=== PATIENT | female | born 1995 | race Caucasian/White ===

== ENCOUNTER 2016-11-09 18:21 | Emergency (ER) | payer OTHER ==
[2016-11-09] MEDS ORDERED: OXYCODONE-ACETAMINOPHEN 5-325 MG TABLET PO ONE (19:36)
[2016-11-09] MEDS ORDERED: METOCLOPRAMIDE HCL 10 MG TABLET PO ONE (19:37)
--- NOTE | 2016-11-09 19:40 | ER Document Report ---
ED Medical Screen (RME) - General Chief Complaint: Flank Pain Stated Complaint: FLANK PAIN Time Seen by Provider: 11/09/16 19:26 Notes: This 21-year-old female patient comes emergency room with a four-day history of left flank abdomen pain. She saw her primary care yesterday was diagnosed with urinary tract infection put on antibiotic. She is 8 weeks by history. She is taking vitamins and a medication for nausea. She was seen here just over 1 year ago with bilateral kidney stones and a left ureteral stone with hydronephrosis. I have greeted and performed a rapid initial assessment of this patient. A comprehensive ED assessment and evaluation of the patient, analysis of test results and completion of the medical decision making process will be conducted by additional ED providers. TRAVEL OUTSIDE OF THE [place] IN LAST 30 DAYS: No - Related Data Allergies/Adverse Reactions: Penicillins Allergy (Severe, Verified 11/09/16 18:28) Hives Past Medical History - Social History Chew tobacco use (# tins/day): No Frequency of alcohol use: None Drug Abuse: None Neurological Medical History: Reports: Hx Migraine Renal/ Medical History: Reports: Hx Ovarian Cysts - left. Denies: Hx Peritoneal Dialysis GI Medical History: Reports: Hx Irritable Bowel, Hx Colonoscopy, Hx Endoscopy Musculoskeltal Medical History: Reports Hx Musculoskeletal Trauma - Fractured right wrist Traumatic Medical History: Reports: Hx Fractures - Right wrist Past Surgical History: Reports: Hx Myringotomy, Hx Oral Surgery - Immunizations Hx Diphtheria, Pertussis, Tetanus Vaccination: Yes Physical Exam - Vital signs Vitals: Temp Pulse Resp BP Pulse Ox 98.4 F 90 18 159/94 H 99 11/09/16 18:26 11/09/16 18:26 11/09/16 18:26 11/09/16 18:26 11/09/16 18:26 Course - Vital Signs Vital signs: Temp Pulse Resp BP Pulse Ox 98.4 F 90 18 159/94 H 99 11/09/16 18:26 11/09/16 18:26 11/09/16 18:26 11/09/16 18:26 11/09/16 18:26
[2016-11-09] MEDS ORDERED: MORPHINE SULFATE 10 MG/ML INJ IV PRN (20:06)
[2016-11-09] MEDS ORDERED: NORMAL SALINE 1000 ML 1,000 ML IV ONE (20:06)
--- NOTE | 2016-11-09 20:08 | ER Document Report ---
ED General - General Chief Complaint: Flank Pain Stated Complaint: FLANK PAIN Time Seen by Provider: 11/09/16 19:26 Notes: Patient is a 21-year-old female with a past medical history of nephrolithiasis, at 8 weeks by transvaginal ultrasound with confirmed intrauterine who presents with 3 days of left flank pain radiating into her left lower abdomen. Does describe it as a severe, constant, stabbing pain intermittently worsens. She has been trying Tylenol with minimal improvement of her pain. Nothing worsens her pain. She was seen by her primary care doctor and diagnosed with having a possible urinary tract infection although they did not perform a urinalysis only a urine culture. She was started on nitrofurantoin which she states has not made any difference in her symptoms. She does have a history of kidney stones in the past and states this feels very similar. She has had associated nausea and vomiting. She denies any fever or constitutional symptoms. Denies any vaginal bleeding or discharge. TRAVEL OUTSIDE OF THE [place] IN LAST 30 DAYS: No - Related Data Allergies/Adverse Reactions: Penicillins Allergy (Severe, Verified 11/09/16 18:28) Kenny Past Medical History - General Information source: Patient - Social History Smoking Status: Never Smoker Chew tobacco use (# tins/day): No Frequency of alcohol use: None Drug Abuse: None Lives with: Spouse/Significant other Family History: Arthritis, CAD, CVA, DM, Hyperlipidemia, Hypertension, Malignancy Neurological Medical History: Reports: Hx Migraine Renal/ Medical History: Reports: Hx Ovarian Cysts - left. Denies: Hx Peritoneal Dialysis GI Medical History: Reports: Hx Irritable Bowel, Hx Colonoscopy, Hx Endoscopy Musculoskeltal Medical History: Reports Hx Musculoskeletal Trauma - Fractured right wrist Traumatic Medical History: Reports: Hx Fractures - Right wrist Past Surgical History: Reports: Hx Myringotomy, Hx Oral Surgery - Immunizations Hx Diphtheria, Pertussis, Tetanus Vaccination: Yes Review of Systems - Review of Systems Notes: Constitutional: Negative for fever. HENT: Negative for sore throat. Eyes: Negative for visual changes. Cardiovascular: Negative for chest pain. Respiratory: Negative for shortness of breath. Gastrointestinal: Positive for flank pain and vomiting Genitourinary: Positive for urinary hesitancy and hematuria Musculoskeletal: Negative for back pain. Skin: Negative for rash. Neurological: Negative for headaches, weakness or numbness. 10 point ROS negative except as marked above and in HPI. Physical Exam - Vital signs Vitals: Temp Pulse Resp BP Pulse Ox 98.4 F 90 18 159/94 H 99 11/09/16 18:26 11/09/16 18:26 11/09/16 18:26 11/09/16 18:26 11/09/16 18:26 Interpretation: Hypertensive Notes: PHYSICAL EXAMINATION: GENERAL: Appears uncomfortable but in no acute distress HEAD: Atraumatic, normocephalic. EYES: Pupils equal round and reactive to light, extraocular movements intact, sclera anicteric, conjunctiva are normal. ENT: nares patent, oropharynx clear without exudates. Moderately dry mucous membranes. NECK: Normal range of motion, supple without lymphadenopathy LUNGS: Breath sounds clear to auscultation bilaterally and equal. No wheezes rales or rhonchi. HEART: Regular rate and rhythm without murmurs ABDOMEN: Soft, nontender, normoactive bowel sounds. No guarding, no rebound. No masses appreciated. Left CVA tenderness. Mild hydronephrosis on bedside ultrasound of the left kidney. Right side without any evidence of hydronephrosis EXTREMITIES: Normal range of motion, no pitting or edema. No cyanosis. NEUROLOGICAL: No focal neurological deficits. Moves all extremities spontaneously and on command. PSYCH: Normal mood, normal affect. SKIN: Warm, Dry, normal turgor, no rashes or lesions noted. Course - Re-evaluation Re-evalutation: 11/09/16 20:07 Patient presents with 3 days of left CVA tenderness with associated dysuria and hematuria. Bedside ultrasound shows mild dilation of the left kidney relative to the right. Differential diagnosis includes pyelonephritis versus nephrolithiasis. This is comp gated pictures patient is currently 8 weeks by dates and has had a confirmatory a transvaginal ultrasound confirming an intrauterine . Her vitals are otherwise within normal limits. Will proceed with labs, urinalysis, pain control and reassess 11/09/16 21:32 Patient is having some pain control improvement although states she continues to have significant pain. Urinalysis is consistent with nephrolithiasis without any evidence of an infected stone. CBC does show a leukocytosis which is nonspecific and likely secondary to patient's recurrent vomiting. Basic metabolic panel is pending. I do not see an indication for CT imaging particularly given the patient is . She has a history of an comp gated stones in the past. She does have mild dilation on the left kidney again consistent with a left-sided nephrolithiasis with mild hydronephrosis. Will plan on treatment with tamsulosin, pain control, outpatient RECREATION TEACHER and urology follow-up. At this time will discharge with return precautions and follow-up recommendations. Verbal discharge instructions given a the bedside and opportunity for questions given. Medication warnings reviewed. Patient is in agreement with this plan and has verbalized understanding of return precautions and the need for primary care follow-up in the next 24-72 hours. - Vital Signs Vital signs: Temp Pulse Resp BP Pulse Ox 98.4 F 75 18 145/78 H 99 11/09/16 18:26 11/09/16 22:00 11/09/16 22:00 11/09/16 22:00 11/09/16 22:00 - Laboratory Result Diagrams: 11/09/16 20:35 11/09/16 22:27 Laboratory results interpreted by me: 11/09/16 11/09/16 20:30 20:35 WBC 23.8 H RDW 14.4 H Seg Neuts % (Manual) 85 H Band Neutrophils % 9 H Lymphocytes % (Manual) 4 L Monocytes % (Manual) 1 L Abs Neuts (Manual) 22.4 H Urine Protein 30 H Urine Ketones 80 H Urine Blood MODERATE H Urine Urobilinogen 2.0 H Urine Ascorbic Acid 40 H Discharge - Discharge Clinical Impression: Kidney stone on left side, History of calculus of kidney during Condition: Stable Disposition: HOME, SELF-CARE Additional Instructions: Your symptoms should improve over the course of the next one week. If you continue to have pain for greater than one week or your pain is not controlled with the pain medications that you have been sent home with you need to return to the emergency department. Please also return if you develop fever, persistent vomiting, or any other symptoms that are concerning to you. You can use the oral morphine as prescribed only for pain not controlled by acetaminophen. Be sure to take acetaminophen 1000 mg every 6 hours scheduled regardless of whether or not you are having pain into the past the stone. Your also been sent home with a medication called Flomax to help pass the stone. You 've been given Zofran to assist with nausea. Please followup closely with your primary care provider. Prescriptions: Morphine Sulfate [Morphine Ir 15 mg Tablet] 15 mg PO Q4HP PRN #12 tablet PRN Reason: Tamsulosin HCl [Flomax 0.4 mg Cap.sr] 0.4 mg PO DAILY #7 cap.sr.24h Referrals: CALE CERVANTES MD [Primary Care Provider] - Follow up in 3-5 days REMINGTON CERDA MD [[facility]] - Follow up in 3-5 days
[2016-11-09] MEDS ORDERED: METOCLOPRAMIDE HCL INJ/PF 10 MG/2 ML SDV IV ONE (20:30)
[2016-11-09] MEDS ORDERED: METOCLOPRAMIDE HCL INJ/PF 10 MG/2 ML SDV ONE (20:34)
[2016-11-09 20:57] LABS: HEMATOCRIT 42.8 % (36.0-47.0); HEMOGLOBIN 15.3 g/dL (12.0-15.5); HGB HCT DIFFERENCE 3.1; MEAN CORPUSCULAR HEMOGLOBIN 30.5 pg (27.0-33.4); MEAN CORPUSCULAR HGB CONC 35.9 g/dL (32.0-36.0); MEAN CORPUSCULAR VOLUME 85 fl (80-97); RED BLOOD COUNT 5.03 10^6/uL (3.72-5.28); RED CELL DISTRIBUTION WIDTH 14.4 % (11.5-14.0); WHITE BLOOD COUNT 23.8 10^3/uL (4.0-10.5)
[2016-11-09 21:21] LABS: APPEARANCE,URINE SLIGHTLY-CLOUDY; BILIRUBIN,URINE NEGATIVE (NEGATIVE); CALCIUM OXALATE CRYSTALS,URINE MODERATE /HPF; GLUCOSE, URINE NEGATIVE (NEGATIVE); KETONES,URINE 80 mg/dL (NEGATIVE); LEUKOCYTE ESTERASE,URINE NEGATIVE (NEGATIVE); NITRITE,URINE NEGATIVE (NEGATIVE); PROTEIN,URINE 30 mg/dL (NEGATIVE); URINE SPECIFIC GRAVITY 1.027
[2016-11-09 21:26] LABS: BAND NEUTROPHILS % (MANUAL) 9 % (3-5); BASOPHILS % (MANUAL) 0 % (0-2); EOSINOPHILS % (MANUAL) 0 % (0-6); LYMPHOCYTES % (MANUAL) 4 % (13-45); TOTAL CELLS COUNTED 100
[2016-11-09 21:28] LABS: ANISOCYTOSIS SLIGHT; PLATELET CLUMPS PRESENT; POLYCHROMASIA SLIGHT; TOXIC GRANULATION SLIGHT
[2016-11-09] MEDS ORDERED: HYDROMORPHONE HCL INJ/PF 2 MG/ML AMPULE IV ONE (21:29)
[2016-11-09] MEDS ORDERED: LIDOCAINE 5% (700 MG) TRANSDERMAL ADH..PATCH TP ONE (21:30)
[2016-11-09] MEDS ORDERED: TAMSULOSIN HCL 0.4 MG CAP.SR.24H PO ONE (21:34)
[2016-11-09] MEDS ORDERED: ONDANSETRON ODT 4 MG TAB (6 TAB/DSPK) PO PRN (21:35)
[2016-11-09] MEDS ORDERED: HYDROCODONE/ACETAMINOPHEN 5-325 MG 6 TAB/DSPK PO PRN (21:35)
[2016-11-09] MEDS ORDERED: ACETAMINOPHEN 325 MG TABLET PO ONE (21:43)
[2016-11-09 22:31] VITALS: BP 145/78
[2016-11-09 22:59] LABS: ANION GAP 14 (5-19); BLOOD UREA NITROGEN 11 mg/dL (7-20); CALCIUM 9.8 mg/dL (8.4-10.2); CARBON DIOXIDE 22 mmol/L (22-30); CHLORIDE 103 mmol/L (98-107); CREATININE RESULT 0.65 mg/dL (0.52-1.25); GLUCOSE 97 mg/dL (75-110); POTASSIUM 4.2 mmol/L (3.6-5.0); SODIUM 138.8 mmol/L (137-145)
== END 2016-11-09 23:33 | disposition home or self-care (01) ==
LOC: ER 18:21
DX: O26.891 Other specified pregnancy related conditions, first trimester (principal); N20.0 Calculus of kidney; R10.9 Unspecified abdominal pain; R39.11 Hesitancy of micturition; R31.9 Hematuria, unspecified; R30.0 Dysuria; O21.9 Vomiting of pregnancy, unspecified; O99.111 Other diseases of the blood and blood-forming organs and certain disorders involving the immune mechanism complicating pregnancy, first trimester; D72.829 Elevated white blood cell count, unspecified; Z3A.08 8 weeks gestation of pregnancy; Z88.0 Allergy status to penicillin; Z87.42 Personal history of other diseases of the female genital tract; Z87.19 Personal history of other diseases of the digestive system
CPT/HCPCS: 99284; 96361; 96374; 96375; 36415; 85025; 80048; 81001; J2765; J2270; J1170; J7030

== ENCOUNTER 2017-05-16 09:38 | Outpatient (CLI) | payer OTHER ==
[2017-05-16 10:26] LABS: RBCS (WET MOUNT) NO RBCS SEEN; T.VAGINALIS (WET MOUNT) NO TRICHOMONAS SEEN; WBCS (WET MOUNT) FEW WBCS SEEN; YEAST (WET MOUNT) NO YEAST SEEN
[2017-05-16 10:39] LABS: APPEARANCE,URINE SLIGHTLY-CLOUDY; COLOR,URINE YELLOW; GLUCOSE, URINE NEGATIVE (NEGATIVE)
[2017-05-16 10:40] LABS: BILIRUBIN,URINE NEGATIVE (NEGATIVE); KETONES,URINE NEGATIVE (NEGATIVE); LEUKOCYTE ESTERASE,URINE NEGATIVE (NEGATIVE); NITRITE,URINE NEGATIVE (NEGATIVE); PROTEIN,URINE NEGATIVE (NEGATIVE); URINE SPECIFIC GRAVITY 1.016
[2017-05-16 10:51] LABS: URINE AMPHETAMINES SCREEN NEGATIVE; URINE BARBITURATES SCREEN NEGATIVE; URINE BENZODIAZEPINES SCREEN NEGATIVE; URINE COCAINE SCREEN NEGATIVE; URINE MARIJUANA (THC) SCREEN NEGATIVE; URINE METHADONE SCREEN NEGATIVE; URINE PHENCYCLIDINE SCREEN NEGATIVE
--- NOTE | 2017-05-16 11:16 | Non Stress Test Report ---
Non Stress Test Datetime Report Generated by CPN: 05/16/2017 11:15 DEMOGRAPHIC EGA NST: 33.5 INDICATION Indication for Study: Ordered by Provider MONITORING Monitor Explained: Monitor Explained; Test Explained; Patient Verbalized Understanding Time on Monitor: 05/16/2017 10:07 Time off Monitor: 05/16/2017 11:00 NST Duration: 53 NST INTERVENTIONS NST Interventions: PO Hydration; Reposition Patient Physician Notified NST: H Yossi CNM BABY A: [id number] BABY A Movement : Present Contraction Frequency : 0 FHR Baseline : 150 Accelerations : 15X15 Decelerations : None Variability : Moderate 6-25bpm NST Review: Meets Criteria for Reactive NST NST Review and Verified By : Uriel Mcgarryavagustavo RNC NST Results: Reactive NST REPORT Report Trigger: Send Report
== END 2017-05-16 11:20 | disposition home or self-care (01) ==
LOC: LC 09:38
PROVIDERS: ATTEND Student in an Organized Health Care Education/Training Program
PROC: 4A1HXCZ Monitoring of Products of Conception, Cardiac Rate, External Approach (ICD-10-PCS; principal; 2017-05-16)
DX: O36.8130 Decreased fetal movements, third trimester, not applicable or unspecified (principal); Z3A.33 33 weeks gestation of pregnancy
CPT/HCPCS: 80307; 81001; 87086; 87088; 87186; 87210

== ENCOUNTER 2017-06-13 11:29 | Inpatient (IN) | payer BC, OTHER ==
[2017-06-13 11:53] LABS: APPEARANCE,URINE SLIGHTLY-CLOUDY; BILIRUBIN,URINE NEGATIVE (NEGATIVE); COLOR,URINE YELLOW; GLUCOSE, URINE NEGATIVE (NEGATIVE); KETONES,URINE NEGATIVE (NEGATIVE); LEUKOCYTE ESTERASE,URINE NEGATIVE (NEGATIVE); NITRITE,URINE NEGATIVE (NEGATIVE); PROTEIN,URINE NEGATIVE (NEGATIVE); URINE SPECIFIC GRAVITY 1.016; UROBILINOGEN,URINE NEGATIVE mg/dL (<2.0)
[2017-06-13 12:01] LABS: ABSOLUTE BASOPHILS # (AUTO) 0.1 10^3/uL (0.0-0.2); ABSOLUTE EOSINOPHILS # (AUTO) 0.2 10^3/uL (0.0-0.6); ABSOLUTE LYMPHOCYTES (AUTO) 2.2 10^3/uL (0.5-4.7); ABSOLUTE MONOCYTES (AUTO) 0.7 10^3/uL (0.1-1.4); ABSOLUTE NEUT (AUTO) 8.7 10^3/uL (1.7-8.2); BASOPHILS % (AUTO) 0.6 % (0-2); EOSINOPHILS % (AUTO) 1.3 % (0-6); HEMATOCRIT 36.9 % (36.0-47.0); HEMOGLOBIN 13.4 g/dL (12.0-15.5); LYMPHOCYTES % (AUTO) 18.8 % (13-45); MEAN CORPUSCULAR HEMOGLOBIN 29.6 pg (27.0-33.4); MEAN CORPUSCULAR HGB CONC 36.3 g/dL (32.0-36.0); MEAN CORPUSCULAR VOLUME 82 fl (80-97); MONOCYTES % (AUTO) 6.1 % (3-13); PLATELET COUNT 234 10^3/uL (150-450); RED BLOOD COUNT 4.53 10^6/uL (3.72-5.28); SEGMENTED NEUTROPHILS % (AUTO) 73.2 % (42-78); TOTAL CELLS COUNTED % (AUTO) 100 %; WHITE BLOOD COUNT 11.9 10^3/uL (4.0-10.5)
[2017-06-13 12:01] LABS: AMNISURE (ROM) POSITIVE (NEGATIVE)
[2017-06-13 12:27] LABS: ALANINE AMINOTRANSFERASE 25 U/L (9-52); ALBUMIN 3.8 g/dL (3.5-5.0); ALKALINE PHOSPHATASE 70 U/L (38-126); ANION GAP 12 (5-19); ASPARTATE AMINO TRANSFERASE 18 U/L (14-36); BILIRUBIN,DIRECT 0.2 mg/dL (0.0-0.4); BILIRUBIN,TOTAL 0.6 mg/dL (0.2-1.3); BLOOD UREA NITROGEN 9 mg/dL (7-20); CALCIUM 10.3 mg/dL (8.4-10.2); CARBON DIOXIDE 21 mmol/L (22-30); CHLORIDE 106 mmol/L (98-107); GLUCOSE 75 mg/dL (75-110); LDH 319 U/L (313-618); POTASSIUM 4.2 mmol/L (3.6-5.0); SODIUM 138.9 mmol/L (137-145); TOTAL PROTEIN 6.6 g/dL (6.3-8.2)
[2017-06-13 12:31] LABS: URINE AMPHETAMINES SCREEN NEGATIVE; URINE BARBITURATES SCREEN NEGATIVE; URINE BENZODIAZEPINES SCREEN NEGATIVE; URINE COCAINE SCREEN NEGATIVE; URINE MARIJUANA (THC) SCREEN NEGATIVE; URINE METHADONE SCREEN NEGATIVE; URINE PHENCYCLIDINE SCREEN NEGATIVE
[2017-06-13] MEDS ORDERED: OXYTOCIN/NORMAL SALINE 20 UNIT/1,000 ML RTUINJ IV PRN (14:03)
[2017-06-13] MEDS ORDERED: RINGERS SOLUTION,LACTATED 300 ML IV ONE (14:03)
[2017-06-13] MEDS ORDERED: RINGERS SOLUTION,LACTATED 1,000 ML IV PRN (14:03)
--- NOTE | 2017-06-13 14:37 | Admission Physical ---
Datetime Report Generated by CPN: 06/13/2017 14:37 CURRENT ADMISSION Chief Complaint: Uterine Contractions; Suspected Ruptured Membranes Indication for Induction: PROM Admit Impression : Term, Intrauterine ; No Active Labor; Ruptured Membranes; Induction of Labor Admit Plan: Admit to Unit; Initiate Labor Induction Protocol ALLERGIES Medication Allergies: Yes Medication Allergies: Penicillins/SV/Hives (06/13/2017) Latex: No Latex Allergies Food Allergies: na Environmental Allergies: na OBSTETRICAL HISTORY EDC: 06/29/2017 00:00 : 1 Para: 0 Term: 0 : 0 SAB: 0 IAB: 0 Ectopic: 0 Livin Cesareans: 0 VBACs: 0 Multiple Births: 0 Gestational Diabetes: Yes Rh Sensitization: No Incompetent Cervix: No NANCY: No Infertility: No ART Treatment: No Uterine Anomaly: No IUGR: No Hx Previous C/S: No Macrosomia: No Hx Loss/Stillborn: No PIH: Yes Hx : No Placenta Previa/Abruption: No Depression/PP Depression: No PTL/PROM: No Post Hemorrhage: No Current Procedures: Ultrasound; NST Obstetrical History Comments: G1: current GDM SEE RECORDS Alcohol: No Marijuana : No Cocaine: No Other Illicit Drugs: No Cigarettes: Never Smoker. [id number] MEDICAL HISTORY Diabetes: Yes Diabetes Type: Gestational Diabetes Blood Transfusion: No Pulmonary Disease (Asthma, TB): No Breast Disease: No Hypertension: Yes Impregnator And Drier Surgery: No Heart Disease: No Hosp/Surgery: No Autoimmune Disorder: No Anesthetic Complications: No Kidney Disease: Yes Abnormal Pap Smear: No Neuro/Epilepsy: No Psychiatric Disorders: No Other Medical Diseases: No Hepatitis/Liver Disease: No Significant Family History: No Varicosities/Phlebitis: No Trauma/Violence : No Thyroid Dysfunction: No Medical History Comments: Chronic uti's kidney stones "depression runs in family" INFECTIOUS HISTORY Gonorrhea: No Genital Herpes: No Chlamydia: No Tuberculosis: No Syphilis: No Hepatitis: No HIV/AIDS Exposure: No Rash or Viral Illness: No HPV: No PHYSICAL EXAM General: Normal HEENT: Normal Neurologic: Normal Thyroid: Deferred Heart: Normal Lungs: Normal Breast: Deferred Back: Normal Abdomen: Normal Genitourinary Exam: Normal Extremities: Normal DTRs: Normal Pelvic Type: Adequate Vital Signs: Reviewed VAGINAL EXAM Dilatation: 1 Effacement: 50 Station: -3 Contraction Comments: rare MEMBRANES Membranes: Intact FETUS A EGA: 37.5 Monitoring: External US FHR- Baseline: 145 Variability: Moderate 6-25bpm Accelerations: 15X15 Decelerations: None FHR Category: Category I Presentation: Vertex Admit Comment: 21yo at 37.5ega presents for evaluation for leakage of fluid and elevated BPs. + ROM on amnisure. PIH w/u labs ordered. GHTN vs PreE. c/b A2GDM, Obesity. Currently on Metformin 500mg po BID. GBS pos (clinda resistant) - Will begin Vancomycin 1gram q 12 hours. Anticipate . Begin IOL with Cooks catheter and pitocin. PLANS FOR LABOR AND DELIVERY Labor and Delivery: None Pain Management: Epidural Feeding Preference: Breast Benefit of Breast Feed Discussed: Yes Circumcision: Yes INFORMED CONSENT Informed Consent Obtained: Vaginal Delivery; Induction of Labor; Risks, Benefits and Alternatives Discussed Signature: with User ID: [email or web address]
[2017-06-13] MEDS ORDERED: VANCOMYCIN HCL INJ 1000 MG VIAL ONE ×2 (14:49→16:00)
[2017-06-13] MEDS ORDERED: OXYTOCIN/NORMAL SALINE 0 UNIT/0 ML RTUINJ ONE (16:00)
--- NOTE | 2017-06-13 16:31 | L&D Progress Notes ---
PROGRESS NOTES Datetime Report Generated by CPN: 06/13/2017 16:31 PROGRESS NOTE Impression: Reassuring Heart Rate Procedures: Scalp Electrode Procedures- Other: cooks placed Plan: Induction Informed Consent Obtained: Vaginal Delivery; Induction of Labor; Risks, Benefits and Alternatives Discussed Vital Signs : Reviewed Comment: ? rom time pt wonders if it was long Cooks cath placed Will start pitocin VAGINAL EXAM Dilatation: 1 Effacement: 50 Station: -3 Contractions: rare MEMBRANES Membranes: Ruptured Membranes: Intact FETUS A FHR - Baseline: 145 Monitoring: External US Variability: Moderate 6-25bpm Accelerations: 15X15 Decelerations: None FHR Category: Category I Presentation: Vertex SIGNATURE SIGNATURE: ,[id number] SIGNATURE: ,[id number];[id number] SIGNATURE: ,[id number] Assignment: Jennifer Valdes MD Signature: with User ID: [email or web address] : with User ID: Taylor
[2017-06-13] MEDS ORDERED: NALBUPHINE HCL INJ 10 MG/1 ML AMPULE INJ ONE (18:21)
[2017-06-13] MEDS ORDERED: NALBUPHINE HCL INJ 10 MG/1 ML AMPULE ONE (18:28)
--- NOTE | 2017-06-13 18:29 | L&D Progress Notes ---
PROGRESS NOTES Datetime Report Generated by CPN: 06/13/2017 18:28 PROGRESS NOTE Impression: Normal Progression of Labor Procedures: Sterile Vag Exam Plan: Continue Present Management; Induction; Cervical Ripening Informed Consent Obtained: Vaginal Delivery; Induction of Labor; Risks, Benefits and Alternatives Discussed Vital Signs : Reviewed Comment: Pt here for IOL due to PROM. cvx 1/50/-3. Cooks catheter still in place. Will give nubain. reeval in 2-3 hours for possible removal of cooks. anticipate . Doing well. desires epidural at some point but wants IV meds for now. VAGINAL EXAM Dilatation: 1 Effacement: 50 Station: -3 Contractions: q 2-3 FETUS A FHR - Baseline: 145 Monitoring: External US Variability: Moderate 6-25bpm Accelerations: 15X15 Decelerations: None FHR Category: Category I FETUS C SIGNATURE: [id number];[id number];10,[id number] Signature: with User ID: [email or web address]
[2017-06-13] MEDS ORDERED: OXYTOCIN/NORMAL SALINE 20 UNIT/1,000 ML RTUINJ ONE (19:31)
[2017-06-13] MEDS ORDERED: LIDOCAINE 1% INJ-PF (10 MG/ML) 30 ML SDV ONE (19:31)
[2017-06-13] MEDS ORDERED: MISOPROSTOL 0.2 MG TABLET ONE (19:31)
[2017-06-13] MEDS ORDERED: FENTANYL CITRATE INJ/PF 100 MCG/2 ML AMPUL ONE (19:48)
[2017-06-13] MEDS ORDERED: FENTANYL/BUPIVACAINE/NS/PF 300 MCG/150 ML RTUINJ EPI ONE (19:49)
[2017-06-13] MEDS ORDERED: EPHEDRINE SULFATE INJ 50 MG/1 ML AMPULE ONE (19:49)
[2017-06-13] MEDS ORDERED: BUPIVACAINE HCL 0.25 % INJ/PF (2.5 MG/1 ML) 30 ML VIAL ONE (19:49)
--- NOTE | 2017-06-13 20:00 | L&D Progress Notes ---
PROGRESS NOTES Datetime Report Generated by CPN: 06/13/2017 20:00 PROGRESS NOTE Impression: Normal Progression of Labor Procedures: Sterile Vag Exam Plan: Induction; Cervical Ripening; Anesthesia Consult Informed Consent Obtained: Vaginal Delivery; Induction of Labor; Risks, Benefits and Alternatives Discussed Vital Signs : Reviewed Comment: Pt asking for pain medication. Cvx with cooks in place is 3-4cm. Cooks remains in place. Will get epidural. MEMBRANES Membranes: Ruptured FETUS A Monitoring: External US Decelerations: None FHR Category: Category I FETUS C SIGNATURE: [id number];[id number];[id number] Signature: with User ID: [email or web address]
[2017-06-14] MEDS ORDERED: BUPIVACAINE HCL 0.5 % INJ/PF 30 ML SDV ONE (00:06)
[2017-06-14] MEDS ORDERED: BUPIVACAINE HCL 0.25 % INJ/PF (2.5 MG/1 ML) 30 ML VIAL ONE (00:24)
[2017-06-14] MEDS ORDERED: FENTANYL CITRATE INJ/PF 100 MCG/2 ML AMPUL ONE (00:24)
[2017-06-14] MEDS ORDERED: ACETAMINOPHEN 325 MG TABLET PO ONE (01:24)
[2017-06-14] MEDS ORDERED: ACETAMINOPHEN 325 MG TABLET ONE (01:28)
[2017-06-14] MEDS ORDERED: VANCOMYCIN HCL INJ 1000 MG VIAL IV SCH (02:00)
[2017-06-14] MEDS ORDERED: VANCOMYCIN HCL INJ 1000 MG VIAL ONE (04:25)
[2017-06-14] MEDS ORDERED: NALBUPHINE HCL INJ 10 MG/1 ML AMPULE ONE (04:58)
[2017-06-14] MEDS ORDERED: NALBUPHINE HCL INJ 10 MG/1 ML AMPULE INJ ONE (05:00)
[2017-06-14] MEDS ORDERED: ACETAMINOPHEN 325 MG TABLET PO PRN (06:13)
[2017-06-14] MEDS ORDERED: BENZOCAINE/MENTHOL AEROSOL SPRAY 56 ML TOP PRN (06:13)
[2017-06-14] MEDS ORDERED: PROMETHAZINE HCL 25 MG TABLET PO PRN (06:13)
[2017-06-14] MEDS ORDERED: ZOLPIDEM TARTRATE 5 MG TABLET PO PRN (06:13)
[2017-06-14] MEDS ORDERED: DIBUCAINE 1% OINTMENT 28 GM TP PRN (06:13)
[2017-06-14] MEDS ORDERED: PROMETHAZINE HCL 25 MG SUPP.RECT PR PRN (06:13)
[2017-06-14] MEDS ORDERED: MISOPROSTOL 0.2 MG TABLET PR PRN (06:13)
[2017-06-14] MEDS ORDERED: GLYCERIN/WITCH HAZEL LEAF 1 EACH MED..PAD TP PRN (06:13)
[2017-06-14] MEDS ORDERED: ACETAMINOPHEN WITH CODEINE #3 TABLET PO PRN (06:13)
[2017-06-14] MEDS ORDERED: PSEUDOEPHEDRINE HCL 30 MG TABLET PO PRN (06:13)
[2017-06-14] MEDS ORDERED: PROMETHAZINE HCL INJ 25 MG/1 ML VIAL IV PRN (06:13)
[2017-06-14] MEDS ORDERED: DIPH/PERTUSS(ACELL)/TETANUS VAC/PF 0.5 ML SYR (>=10YO) IM PRN (06:13)
[2017-06-14] MEDS ORDERED: MEASLES,MUMPS&RUBELLA VACC/PF 0.5 ML VIAL SUBCUT PRN (06:13)
[2017-06-14] MEDS ORDERED: DIPHENHYDRAMINE HCL 25 MG CAPSULE PO PRN (06:13)
[2017-06-14] MEDS ORDERED: MAGNESIUM HYDROXIDE SUSP 30 ML UDCUP PO PRN (06:13)
[2017-06-14] MEDS ORDERED: NA PHOS,M-B/NA PHOS,DI-BA (ADULT) 133 ML ENEMA PR PRN (06:13)
[2017-06-14] MEDS ORDERED: OXYTOCIN/NORMAL SALINE 20 UNIT/1,000 ML RTUINJ IV PRN (06:13)
[2017-06-14] MEDS ORDERED: OXYTOCIN/NORMAL SALINE 20 UNIT/1,000 ML RTUINJ ONE (06:25)
--- NOTE | 2017-06-14 06:55 | Delivery Summary ---
Del Sum A-C Datetime Report Generated by CPN: 06/14/2017 06:55 DELIVERY PERSONNEL DELIVERY PERSONNEL: [id number] Delivery Doctor:: Jennifer Valdes MD Anesthesiologist:: Suly Mcgraw MD Labor and Delivery Nurse:: Paty Torres RNbeef cattle specialist Nurse:: Ynes Carbajal RN Public Relations Supervisor/SALVAGE GRINDER: Jackelyn Kennedy ST MATERNAL INFORMATION Delivery Anesthesia: Epidural Medications After Delivery: Pitocin Drip 20 Units/1000ml NSS Meds After Delivery Comment: Cytotec 1000 mcg Maternal Complications: Maternal Fever Provider Comments: VMI delivered in GIA presentation. Loose nuchal cord. Shoulders and body delivered without difficulty. cord doubly clamped and cut and to maternal abdomen. Placenta delivered intact spontaneously. FF at U. right labial laceration repaired for hemostasis. Cytotec 1000mcg GA placed for uterine tone. Mother and baby stable upon provider leaving the room. LABOR SUMMARY EDC: 06/29/2017 00:00 No. Babies in Womb: 1 Attempted: No Labor Anesthesia: Epidural LABOR INFORMATION Reason for Induction: Gestational Hypertension; Maternal Diabetes Onset of Labor: 06/13/2017 21:48 Complete Dilatation: 06/14/2017 05:08 Cervical Ripening Agents: Moran Balloon Oxytocin: Induction Group B Beta Strep: Positive Antibiotics # of Doses: 2 Antibiotics Time of Last Dose: 0443 Name of Antibiotic Given: Vancomycin Steroids Given: None Reason Steroids Not Administered: Not Applicable MEMBRANES Membranes Rupture Method: Spontaneous Rupture of Membranes: 06/11/2017 19:30 Length of Rupture (hr): 58.02 Amniotic Fluid Color: Clear Amniotic Fluid Amount: Small STAGES OF LABOR Stage 1 hr: 7 Stage 1 min: 20 Stage 2 hr: 0 Stage 2 min: 23 Stage 3 hr: 0 Stage 3 min: 3 Total Time in Labor hr: 7 Total Time in Labor min: 46 VAGINAL DELIVERY Episiotomy: None Laceration #1: Vaginal Laceration Extension #1: N/A Other Laceration: Right Labial Laceration Repair: Yes Laceration Repair Note: Right labial laceration Sponge Count Correct: Yes Sharps Count Correct: Yes CSECTION DELIVERY Primary Indication: N/A Secondary Indication: N/A CSection Incidence: N/A Labor: N/A Elective: N/A CSection Incision: N/A BABY A INFORMATION Delivery Date/Time: 06/14/2017 05:31 Method of Delivery: Vaginal Born in Route : No : N/A Forceps: N/A Vacuum Extraction: N/A Shoulder Dystocia : No PRESENTATION/POSITION BABY A Presentation: Cephalic Cephalic Presentation: Vertex Vertex Position: Right Occipital Anterior Breech Presentation: N/A PLACENTA INFORMATION BABY A Placenta Delivery Time : 06/14/2017 05:34 Placenta Method of Delivery: Spontaneous Placenta Status: Delivered SCORES BABY A Heart Rate 1 min: >100 bpm Resp Effort 1 min: Good Cry Reflex Irritability 1 min: Cough or Sneeze or Pulls Away Muscle Tone 1 min: Some Flexion of Extremities Color 1 min: Completely [place] Resuscitation Effort 1 min: N/A SCORE 1 MIN: 9 Heart Rate 5 min: >100 bpm Resp Effort 5 min: Good Cry Reflex Irritability 5 min: Cough or Sneeze or Pulls Away Muscle Tone 5 min: Some Flexion of Extremities Color 5 min: Completely [place] Resuscitation Effort 5 min: N/A SCORE 5 MIN: 9 INFORMATION BABY A Gestational Age at Delivery: 37.6 Gestational Status: Early Term- 37- 38.6 Weeks Infant Outcome : Liveborn Condition : Stable Sex: Male IDENTIFICATION BABY A Infant Verification Date/Time: 06/14/2017 05:38 ID Band Number: [id number] Mother's Name Verified: Yes Infant RN Verifying Infant: K Marily RN B Carbajal RN WEIGHT/LENGTH BABY A Birthweight (gm): 2780 Weight (lb): 6 Weight (oz): 2 Infant Length (in): 19.00 Length (cm): 48.26 CORD INFORMATION BABY A No. Cord Vessels: 3 Nuchal Cord : Around Neck x1, Loose Cord Blood Taken: Yes-For Storage (Mom's Blood type +) Suction: Mouth; Nose ASSESSMENT BABY A Infant Complications: Multiple Variable Decels Physical Findings at Delivery: Molding of the Head Respirations: Appears Normal Skin to Skin: Yes Icer Machine/ALS Called : No Care By: B. Carbajal RN Transferred To: Remains with Mother BABY B INFORMATION : N/A SIGNATURES Signature: with User ID: [email or web address]
[2017-06-14] MEDS: PRENATAL VITAMIN W DHA CAPSULE PO SCH (09:18)
[2017-06-14] MEDS: SENNOSIDES/DOCUSATE 8.6-50 MG 1 EACH TABLET PO SCH (09:18)
[2017-06-14] MEDS: DOCUSATE SODIUM 100 MG CAPSULE PO SCH ×2 (09:19→17:33)
[2017-06-14] MEDS: FERROUS SULFATE 325 MG TABLET PO SCH ×2 (09:19→17:33)
[2017-06-14] MEDS: FAMOTIDINE 20 MG TABLET PO SCH ×2 (09:19→21:23)
[2017-06-14] MEDS: IBUPROFEN 800 MG TABLET PO SCH ×2 (13:32→21:22)
[2017-06-14] MEDS: ACETAMINOPHEN WITH CODEINE #3 TABLET PO PRN ×2 (15:49→21:24)
[2017-06-15] MEDS: IBUPROFEN 800 MG TABLET PO SCH ×3 (06:10→22:47)
[2017-06-15 06:53] LABS: HEMATOCRIT 29.3 % (36.0-47.0); MEAN CORPUSCULAR HEMOGLOBIN 29.9 pg (27.0-33.4); MEAN CORPUSCULAR HGB CONC 36.3 g/dL (32.0-36.0); MEAN CORPUSCULAR VOLUME 83 fl (80-97); PLATELET COUNT 190 10^3/uL (150-450); RED BLOOD COUNT 3.55 10^6/uL (3.72-5.28); RED CELL DISTRIBUTION WIDTH 15.3 % (11.5-14.0); WHITE BLOOD COUNT 12.6 10^3/uL (4.0-10.5)
[2017-06-15 06:56] LABS: HEMOGLOBIN 10.6 g/dL (12.0-15.5)
[2017-06-15] MEDS: SENNOSIDES/DOCUSATE 8.6-50 MG 1 EACH TABLET PO SCH (10:21)
[2017-06-15] MEDS: PRENATAL VITAMIN W DHA CAPSULE PO SCH (10:21)
[2017-06-15] MEDS: DOCUSATE SODIUM 100 MG CAPSULE PO SCH ×2 (10:22→18:11)
[2017-06-15] MEDS: FAMOTIDINE 20 MG TABLET PO SCH ×2 (10:23→22:46)
[2017-06-15] MEDS: FERROUS SULFATE 325 MG TABLET PO SCH ×2 (10:23→18:11)
--- NOTE | 2017-06-15 10:50 | PDOC PROGRESS REPORT ---
Subjective-OB Progress Note for:: 06/15/17 Physical Exam (OB) Vital Signs: Temp Pulse Resp BP Pulse Ox 98.2 F 73 18 124/64 99 06/15/17 07:54 06/15/17 07:54 06/15/17 07:54 06/15/17 07:54 06/15/17 07:54 Intake & Output 06/14/17 06/15/17 06/16/17 06:59 06:59 06:59 Weight 99.3 kg - PIH/Pre-Eclampsia DTR's: 2 + Clonus: Negative Headache: Absent Epigastric Pain: No Visual Changes: No - Lochia Lochia Amount: Small 10-25 ml Lochia Color: Rubra/Red - Abdomen Description: Soft, Round Hernia Present: No Bowel Sounds: Normoactive Flatus Presence: Present Stool: Yes Fundal Description: Firm, Midline Fundal Height: u/u - u/2 Objective-Diagnostic Laboratory: 06/15/17 06:18 06/13/17 11:46 06/15/17 06:18 WBC 12.6 H RBC 3.55 L Hgb 10.6 L D Hct 29.3 L MCV 83 MCH 29.9 MCHC 36.3 H RDW 15.3 H Plt Count 190
[2017-06-15] MEDS: ACETAMINOPHEN WITH CODEINE #3 TABLET PO PRN (15:28)
[2017-06-16] MEDS: IBUPROFEN 800 MG TABLET PO SCH (06:40)
[2017-06-16 08:20] VITALS: BP 115/59
--- NOTE | 2017-06-16 09:05 | PDOC PROGRESS REPORT ---
Subjective-OB Progress Note for:: 06/16/17 Subjective: Ready to go home. Physical Exam (OB) Vital Signs: Temp Pulse Resp BP Pulse Ox 98.6 F 81 16 115/59 L 100 06/16/17 07:19 06/16/17 07:19 06/16/17 07:19 06/16/17 07:19 06/16/17 07:19 - PIH/Pre-Eclampsia DTR's: 2 + Clonus: Negative Headache: Absent Epigastric Pain: No Visual Changes: No - Lochia Lochia Amount: Scant < 10 ml Lochia Color: Serosa/Brown - Abdomen Description: Firm, Soft, Round Hernia Present: No Bowel Sounds: Normoactive Flatus Presence: Present Stool: No Fundal Description: Firm, Midline Fundal Height: u/u - u/2 Objective-Diagnostic Laboratory: 06/15/17 06:18 06/13/17 11:46
--- NOTE | 2017-06-16 09:10 | PDOC DISCHARGE SUMMARY ---
Final Diagnosis Discharge Date: 06/16/17 - Final Diagnosis (1) GDM (gestational diabetes mellitus) Is this a current diagnosis for this admission?: Yes (2) Group B streptococcal carriage complicating Is this a current diagnosis for this admission?: Yes (3) Obesity Is this a current diagnosis for this admission?: Yes (4) Obstetric labial laceration, delivered, current hospitalization Is this a current diagnosis for this admission?: Yes (5) Spontaneous rupture of amniotic membranes Is this a current diagnosis for this admission?: Yes (6) Vaginal delivery Is this a current diagnosis for this admission?: Yes Discharge Data - Discharge Medication Home Medications: Vit,Calc76/Iron/Folic [Prenatabs Rx Tablet] 1 tab PO DAILY 05/16/17 Gestational Age: 37.6 wks Reason(s) for Admission: Induction of Labor, Gestional Diabetes Procedures: Ultrasound Intrapartum Procedure(s): Spontaneous Vaginal Delivery Complication(s): Laceration-Labial - [place] Data Baby 1 Male at 1 minute: 9 at 5 minutes: 9 Weight: 2.778 kg Home with Mother: Yes Complications: No - Diagnosis Test Laboratory: Temp Pulse Resp BP Pulse Ox 98.6 F 81 16 115/59 L 100 06/16/17 07:19 06/16/17 07:19 06/16/17 07:19 06/16/17 07:19 06/16/17 07:19 06/13/17 06/13/17 06/15/17 11:35 11:46 06:18 RBC 4.53 3.55 L Hgb 13.4 10.6 L D Hct 36.9 29.3 L Urine Opiates Screen NEGATIVE - Discharge information/Instructions Discharge Activity: Activity As Tolerated, Balance Activity w/Rest, Pelvic Rest , Slowly Increase Activity, No tub bath Discharge Diet: Regular Disposition: HOME, SELF-CARE Follow up with: [facility] in: 4, Weeks
[2017-06-16] MEDS: PRENATAL VITAMIN W DHA CAPSULE PO SCH (09:23)
[2017-06-16] MEDS: DOCUSATE SODIUM 100 MG CAPSULE PO SCH (09:23)
[2017-06-16] MEDS: FAMOTIDINE 20 MG TABLET PO SCH (09:24)
[2017-06-16] MEDS: SENNOSIDES/DOCUSATE 8.6-50 MG 1 EACH TABLET PO SCH (09:24)
[2017-06-16] MEDS: FERROUS SULFATE 325 MG TABLET PO SCH (09:24)
[2017-06-16] MEDS: ACETAMINOPHEN WITH CODEINE #3 TABLET PO PRN (09:25)
== END 2017-06-16 12:19 | disposition home or self-care (01) | DRG 774 ==
LOC: LC 11:29 → LR 12:54 → 2S 06-14 08:09
PROVIDERS: ADMIT Student in an Organized Health Care Education/Training Program; ATTEND Student in an Organized Health Care Education/Training Program
PROC: 10E0XZZ Delivery of Products of Conception, External Approach (ICD-10-PCS; principal; 2017-06-13)
PROC: 0UQMXZZ Repair Vulva, External Approach (ICD-10-PCS; 2017-06-13)
PROC: 10H073Z Insertion of Monitoring Electrode into Products of Conception, Via Natural or Artificial Opening (ICD-10-PCS; 2017-06-13)
PROC: 3E033VJ Introduction of Other Hormone into Peripheral Vein, Percutaneous Approach (ICD-10-PCS; 2017-06-13)
PROC: 4A1H7CZ Monitoring of Products of Conception, Cardiac Rate, Via Natural or Artificial Opening (ICD-10-PCS; 2017-06-13)
DX: O24.420 Gestational diabetes mellitus in childbirth, diet controlled (principal); O75.2 Pyrexia during labor, not elsewhere classified; Z68.41 Body mass index [BMI] 40.0-44.9, adult; O99.824 Streptococcus B carrier state complicating childbirth; O99.214 Obesity complicating childbirth; E66.9 Obesity, unspecified; O70.0 First degree perineal laceration during delivery; O69.81X0 Labor and delivery complicated by cord around neck, without compression, not applicable or unspecified; O13.4 Gestational [pregnancy-induced] hypertension without significant proteinuria, complicating childbirth; Z88.0 Allergy status to penicillin; Z3A.37 37 weeks gestation of pregnancy; Z37.0 Single live birth
CPT/HCPCS: 36415; 80053; 80307; 81001; 83615; 84112; 84550; 85025; 85027; 86592; 86850; 86900; 86901; 94760; C1726; J2300; J2590; J3010; J3370; J3490

== ENCOUNTER → 2019-02-12 | Outpatient (CLI) | payer OTHER ==
--- NOTE | 2019-02-12 12:40 | RADIOLOGY REPORT (SQ) ---
EXAM DESCRIPTION: U/S OB LIMITED COMPLETED DATE/TIME: 02/12/2019 12:25 pm REASON FOR STUDY: DEMISE COLUMBA COMPARISON: None. TECHNIQUE: Limited transabdominal grayscale ultrasound for evaluation of specific requested obstetri mine parameters. LIMITATIONS: None. FINDINGS: CLINICAL INFORMATION: COLUMBA: 07/27/2020 Gestational age: 16 weeks 6 days CERVICAL LENGTH: 3.1 cm Closed. LVP: 2.8 cm. FHR: heart tones not identified. ESTIMATED GESTATIONAL AGE: 15 weeks 2 days PLACENTA: Not assessed ANATOMY: Not assessed OTHER: No other significant findings. IMPRESSION: No heart tones identified compatible with given history of demise. Estimate d gestational age of 15 weeks 2 days. TECHNICAL DOCUMENTATION: JOB ID: [id number] [employer]- All Rights Reserved Reading location - IP/workstation name: [email or web address]
== END ==
LOC: RAD 12:02
PROVIDERS: ATTEND Obstetrics & Gynecology Gynecology
DX: O02.1 Missed abortion (principal)
CPT/HCPCS: 76815

== ENCOUNTER 2019-02-13 06:28 | Observation (INO) | payer OTHER ==
[2019-02-13] MEDS ORDERED: DEXTROSE 50%-WATER 25 GM/50 ML DISP.SYRIN IV PRN ×2 (06:31)
[2019-02-13] MEDS ORDERED: GLUCAGON,HUMAN RECOMB 1 MG INJ SUBCUT PRN (06:31)
[2019-02-13] MEDS ORDERED: DEXTROSE 40% GEL 15 GM TUBE PO PRN ×2 (06:31)
[2019-02-13] MEDS ORDERED: MISOPROSTOL 0.2 MG TABLET PO ONE ×2 (06:45→15:30)
[2019-02-13 08:11] LABS: ABSOLUTE EOSINOPHILS # (AUTO) 0.2 10^3/uL (0.0-0.6); ABSOLUTE LYMPHOCYTES (AUTO) 1.6 10^3/uL (0.5-4.7); ABSOLUTE MONOCYTES (AUTO) 0.6 10^3/uL (0.1-1.4); ABSOLUTE NEUT (AUTO) 8.6 10^3/uL (1.7-8.2); BASOPHILS % (AUTO) 0.2 % (0-2); EOSINOPHILS % (AUTO) 1.4 % (0-6); HEMATOCRIT 36.2 % (36.0-47.0); HEMOGLOBIN 13.2 g/dL (12.0-15.5); LYMPHOCYTES % (AUTO) 14.7 % (13-45); MEAN CORPUSCULAR HEMOGLOBIN 31.2 pg (27.0-33.4); MEAN CORPUSCULAR HGB CONC 36.5 g/dL (32.0-36.0); MEAN CORPUSCULAR VOLUME 85 fl (80-97); MONOCYTES % (AUTO) 5.7 % (3-13); PLATELET COUNT 189 10^3/uL (150-450); RED BLOOD COUNT 4.24 10^6/uL (3.72-5.28); RED CELL DISTRIBUTION WIDTH 13.1 % (11.5-14.0); TOTAL CELLS COUNTED % (AUTO) 100 %
[2019-02-13] MEDS: DEXTROSE 5%-LACTATED RINGERS 1,000 ML IV PRN ×3 (08:22→23:21)
[2019-02-13 09:24] LABS: APPEARANCE,URINE CLEAR; BILIRUBIN,URINE NEGATIVE (NEGATIVE); COLOR,URINE STRAW; GLUCOSE, URINE NEGATIVE (NEGATIVE); KETONES,URINE NEGATIVE (NEGATIVE); LEUKOCYTE ESTERASE,URINE NEGATIVE (NEGATIVE); NITRITE,URINE NEGATIVE (NEGATIVE); PROTEIN,URINE NEGATIVE (NEGATIVE); URINE SPECIFIC GRAVITY 1.006; UROBILINOGEN,URINE NEGATIVE mg/dL (<2.0)
[2019-02-13] MEDS: IBUPROFEN 800 MG TABLET PO SCH ×4 (11:19→23:16)
[2019-02-13] MEDS: ACETAMINOPHEN 325 MG TABLET PO SCH ×2 (13:11→18:13)
[2019-02-13] MEDS ORDERED: MISOPROSTOL 0.2 MG TABLET ONE (15:08)
[2019-02-13] MEDS ORDERED: MISOPROSTOL 0.2 MG TABLET PV SCH (19:30)
--- NOTE | 2019-02-13 19:58 | PDOC PROGRESS REPORT ---
Subjective Progress Note for:: 02/13/19 Subjective:: Doing fine. No VB. Had some benavides VD and some mild cramps. Motrin helps pain. Reason For Visit: DEMISE Physical Exam - Physical Exam Vital Signs: Temp Pulse Resp BP Pulse Ox 98.3 F 59 L 18 117/58 L 100 02/13/19 15:22 02/13/19 15:22 02/13/19 15:22 02/13/19 15:22 02/13/19 15:22 Intake & Output 02/12/19 02/13/19 02/14/19 06:59 06:59 06:59 Intake Total 1000 Balance 1000 Weight 96.252 kg - Gynecological Exam Labia: normal Introitus: normal Cervix: normal - FT/th/high Dose of cytotec 600mcg placed in vagina near cervix Result Laboratory Results: 02/13/19 07:36 02/13/19 02/13/19 02/13/19 07:36 08:33 09:35 WBC 11.0 H RBC 4.24 Hgb 13.2 Hct 36.2 MCV 85 MCH 31.2 MCHC 36.5 H RDW 13.1 Plt Count 189 Seg Neutrophils % 78.0 Urine Color STRAW Urine Appearance CLEAR Urine pH 6.0 Ur Specific [place] 1.006 Urine Protein NEGATIVE Urine Glucose (UA) NEGATIVE Urine Ketones NEGATIVE Urine Blood SMALL H Urine Nitrite NEGATIVE Ur Leukocyte Esterase NEGATIVE Urine WBC (Auto) 0 Urine RBC (Auto) 0 Blood Type Cancelled Antibody Screen Cancelled 02/13/19 10:35 WBC RBC Hgb Hct MCV MCH MCHC RDW Plt Count Seg Neutrophils % Urine Color Urine Appearance Urine pH Ur Specific [place] Urine Protein Urine Glucose (UA) Urine Ketones Urine Blood Urine Nitrite Ur Leukocyte Esterase Urine WBC (Auto) Urine RBC (Auto) Blood Type A POSITIVE Antibody Screen NEGATIVE Assessment & Plan - Diagnosis (1) demise before 20 weeks with retention of fetus Is this a current diagnosis for this admission?: Yes Plan: Minimal cervical change Cytotec 600mcg placed PV Continue current care May eat a bite for dinner then back to Ice chips Continue IVFs : LR at 125 cc/hr - Time Time Spent with patient: Less than 15 minutes Disposition: Stable
[2019-02-13] MEDS: MISOPROSTOL 0.2 MG TABLET PO SCH (22:08)
[2019-02-13] MEDS ORDERED: IBUPROFEN 800 MG TABLET PO SCH (23:00)
[2019-02-14] MEDS ORDERED: MISOPROSTOL 0.2 MG TABLET ONE (02:14)
[2019-02-14] MEDS: MISOPROSTOL 0.2 MG TABLET PO SCH (02:17)
[2019-02-14] MEDS: ACETAMINOPHEN 325 MG TABLET PO SCH ×2 (05:27)
[2019-02-14] MEDS: IBUPROFEN 800 MG TABLET PO SCH (05:28)
--- NOTE | 2019-02-14 05:56 | PDOC PROGRESS REPORT ---
Subjective Progress Note for:: 02/14/19 Subjective:: Called to patients bedside d/t pressure and pain. To bedside to examine and fetus delivered. Non-viable as anticipated. Cord clamped and passed to RN. Placenta just inside os and does delivery with fundal pressure. Minimal bleeding. EBL 50 ml Reason For Visit: DEMISE Physical Exam - Physical Exam Vital Signs: Temp Pulse Resp BP Pulse Ox 98.2 F 76 18 136/64 H 99 02/14/19 05:33 02/14/19 05:33 02/14/19 05:33 02/14/19 05:33 02/14/19 05:33 Intake & Output 02/12/19 02/13/19 02/14/19 06:59 06:59 06:59 Intake Total 1640 Balance 1640 Weight 96.252 kg - Gynecological Exam Labia: normal Introitus: normal Cervix: normal - FT/th/high Dose of cytotec 600mcg placed in vagina near cervix Result Laboratory Results: 02/13/19 07:36 02/13/19 02/13/19 02/13/19 07:36 08:33 09:35 WBC 11.0 H RBC 4.24 Hgb 13.2 Hct 36.2 MCV 85 MCH 31.2 MCHC 36.5 H RDW 13.1 Plt Count 189 Seg Neutrophils % 78.0 Urine Color STRAW Urine Appearance CLEAR Urine pH 6.0 Ur Specific [place] 1.006 Urine Protein NEGATIVE Urine Glucose (UA) NEGATIVE Urine Ketones NEGATIVE Urine Blood SMALL H Urine Nitrite NEGATIVE Ur Leukocyte Esterase NEGATIVE Urine WBC (Auto) 0 Urine RBC (Auto) 0 Blood Type Cancelled Antibody Screen Cancelled 02/13/19 10:35 WBC RBC Hgb Hct MCV MCH MCHC RDW Plt Count Seg Neutrophils % Urine Color Urine Appearance Urine pH Ur Specific [place] Urine Protein Urine Glucose (UA) Urine Ketones Urine Blood Urine Nitrite Ur Leukocyte Esterase Urine WBC (Auto) Urine RBC (Auto) Blood Type A POSITIVE Antibody Screen NEGATIVE Assessment & Plan - Diagnosis (1) demise before 20 weeks with retention of fetus Is this a current diagnosis for this admission?: Yes - Time Time Spent with patient: 15-24 minutes
[2019-02-14] MEDS: DEXTROSE 5%-LACTATED RINGERS 1,000 ML IV PRN (07:43)
[2019-02-14 11:14] LABS: ABSOLUTE EOSINOPHILS # (AUTO) 0.1 10^3/uL (0.0-0.6); ABSOLUTE LYMPHOCYTES (AUTO) 1.9 10^3/uL (0.5-4.7); ABSOLUTE MONOCYTES (AUTO) 0.6 10^3/uL (0.1-1.4); BASOPHILS % (AUTO) 0.2 % (0-2); EOSINOPHILS % (AUTO) 1.1 % (0-6); HEMATOCRIT 34.9 % (36.0-47.0); HEMOGLOBIN 12.7 g/dL (12.0-15.5); LYMPHOCYTES % (AUTO) 17.8 % (13-45); MEAN CORPUSCULAR HEMOGLOBIN 31.1 pg (27.0-33.4); MEAN CORPUSCULAR HGB CONC 36.4 g/dL (32.0-36.0); MEAN CORPUSCULAR VOLUME 85 fl (80-97); MONOCYTES % (AUTO) 5.9 % (3-13); PLATELET COUNT 194 10^3/uL (150-450); RED BLOOD COUNT 4.09 10^6/uL (3.72-5.28); RED CELL DISTRIBUTION WIDTH 13.4 % (11.5-14.0); TOTAL CELLS COUNTED % (AUTO) 100 %; WHITE BLOOD COUNT 10.7 10^3/uL (4.0-10.5)
[2019-02-14 12:54] VITALS: BP 115/68
--- NOTE | 2019-02-14 14:34 | PDOC DISCHARGE SUMMARY ---
Impression - Admit/DC Date/PCP Admission Date/Primary Care Provider: 02/13/19 06:28 CONCETTA SMILEY MD Discharge Date: 02/14/19 - Assessment Summary: s/p IOL with cytotec due to IUFD at 16+4ega. doing well. Desires discharge - Additional Information Resuscitation Status: Full Code Discharge Diet: As Tolerated Discharge Activity: Activity As Tolerated, Balance Activity w/Rest, Other Referrals: BELINDA GUARDADO MD [[employer]ISION[employer]FF] - Prescriptions: Ibuprofen [Motrin 800 mg Tablet] 800 mg PO Q8 #90 tablet Acetaminophen [Tylenol 325 mg Tablet] 975 mg PO Q6 #30 tablet Home Medications: Vit,Calc76/Iron/Folic [Prenatabs Rx Tablet] 1 tab PO DAILY 05/16/17 Acetaminophen [Tylenol 325 mg Tablet] 975 mg PO Q6 #30 tablet 02/14/19 Ibuprofen [Motrin 800 mg Tablet] 800 mg PO Q8 #90 tablet 02/14/19 History of Present Illiness History of Present Illness: KANCHAN CHACON is a 23 year old female s/p IOL with cytotec due to IUFD at 16+4ega. doing well. Desires discharge Hospital Course Hospital Course: s/p IOL with cytotec due to IUFD at 16+4ega. doing well. Desires discharge. WBC wnl - no need for abx. scant bleeding. Desires gross exam only of baby if possible. Desires genetics and declines autopsy. Physical Exam - Physical Exam Vital Signs: Temp Pulse Resp BP Pulse Ox 98.1 F 53 L 16 115/68 100 02/14/19 12:36 02/14/19 12:36 02/14/19 12:36 02/14/19 12:36 02/14/19 12:36 Intake & Output 02/13/19 02/14/19 02/15/19 06:59 06:59 06:59 Intake Total 1640 1000 Balance 1640 1000 Weight 96.25 kg General appearance: PRESENT: no acute distress, well-developed, well-nourished Head exam: PRESENT: atraumatic, normocephalic Respiratory exam: PRESENT: clear to auscultation amaury, symmetrical, unlabored GI/Abdominal exam: PRESENT: normal bowel sounds, soft. ABSENT: distended, guarding, mass, organolmegaly, rebound, tenderness Rectal exam: PRESENT: deferred Extremities exam: PRESENT: full ROM. ABSENT: calf tenderness, clubbing, pedal edema Neurological exam: PRESENT: alert, awake, oriented to person, oriented to place, oriented to time, oriented to situation, CN II-XII grossly intact. ABSENT: motor sensory deficit - Gynecological Exam Labia: normal Introitus: normal Cervix: normal - FT/th/high Dose of cytotec 600mcg placed in vagina near cervix Results Laboratory Results: WBC 10.7 10^3/uL (4.0-10.5) H 02/14/19 10:38 RBC 4.09 10^6/uL (3.72-5.28) 02/14/19 10:38 Hgb 12.7 g/dL (12.0-15.5) 02/14/19 10:38 Hct 34.9 % (36.0-47.0) L 02/14/19 10:38 MCV 85 fl (80-97) 02/14/19 10:38 MCH 31.1 pg (27.0-33.4) 02/14/19 10:38 MCHC 36.4 g/dL (32.0-36.0) H 02/14/19 10:38 RDW 13.4 % (11.5-14.0) 02/14/19 10:38 Plt Count 194 10^3/uL (150-450) 02/14/19 10:38 Lymph % (Auto) 17.8 % (13-45) 02/14/19 10:38 [place] % (Auto) 5.9 % (3-13) 02/14/19 10:38 Eos % (Auto) 1.1 % (0-6) 02/14/19 10:38 Baso % (Auto) 0.2 % (0-2) 02/14/19 10:38 Absolute Neuts (auto) 8.0 10^3/uL (1.7-8.2) 02/14/19 10:38 Absolute Lymphs (auto) 1.9 10^3/uL (0.5-4.7) 02/14/19 10:38 Absolute Monos (auto) 0.6 10^3/uL (0.1-1.4) 02/14/19 10:38 Absolute Eos (auto) 0.1 10^3/uL (0.0-0.6) 02/14/19 10:38 Absolute Basos (auto) 0.0 10^3/uL (0.0-0.2) 02/14/19 10:38 Seg Neutrophils % 75.0 % (42-78) 02/14/19 10:38 Hemoglobin A1c % 4.3 % (4.7-6.0) L 02/14/19 10:38 TSH 1.12 uIU/mL (0.47-4.68) 02/14/19 10:38 Urine Color STRAW 02/13/19 08:33 Urine Appearance CLEAR 02/13/19 08:33 Urine pH 6.0 (5.0-9.0) 02/13/19 08:33 Ur Specific [place] 1.006 02/13/19 08:33 Urine Protein NEGATIVE mg/dL (NEGATIVE) 02/13/19 08:33 Urine Glucose (UA) NEGATIVE mg/dL (NEGATIVE) 02/13/19 08:33 Urine Ketones NEGATIVE mg/dL (NEGATIVE) 02/13/19 08:33 Urine Blood SMALL (NEGATIVE) H 02/13/19 08:33 Urine Nitrite NEGATIVE (NEGATIVE) 02/13/19 08:33 Urine Bilirubin NEGATIVE (NEGATIVE) 02/13/19 08:33 Urine Urobilinogen NEGATIVE mg/dL (<2.0) 02/13/19 08:33 Ur Leukocyte Esterase NEGATIVE (NEGATIVE) 02/13/19 08:33 Urine WBC (Auto) 0 /HPF 02/13/19 08:33 Urine RBC (Auto) 0 /HPF 02/13/19 08:33 Squamous Epi Cells Auto 2 /HPF 02/13/19 08:33 Urine Mucus (Auto) RARE /LPF 02/13/19 08:33 Urine Ascorbic Acid NEGATIVE (NEGATIVE) 02/13/19 08:33 Blood Type A POSITIVE 02/13/19 10:35 Antibody Screen NEGATIVE 02/13/19 10:35 Plan Plan of Treatment: F/u next week for depression check Stroke Is this a Stroke Patient?: No Acute Heart Failure - Is this a Heart Failure Patient?: No
[2019-02-17 06:56] LABS: HSV-I IGG AB <0.91 index (0.00-0.90); TOXOPLASMA GONDII IGM AB 3.2 AU/mL (0.0-7.9)
[2019-02-18 14:04] LABS: PARVOVIRUS B19 IGG AB 4.9 index (0.0-0.8); PARVOVIRUS B19 IGM AB 0.2 index (0.0-0.8)
== END 2019-02-14 13:55 | disposition home or self-care (01) ==
LOC: 2S 06:28
PROVIDERS: ADMIT Obstetrics & Gynecology; ATTEND Obstetrics & Gynecology
DX: O02.1 Missed abortion (principal); O99.212 Obesity complicating pregnancy, second trimester; E66.9 Obesity, unspecified; O99.332 Smoking (tobacco) complicating pregnancy, second trimester; F17.210 Nicotine dependence, cigarettes, uncomplicated; Z13.1 Encounter for screening for diabetes mellitus; Z36.89 Encounter for other specified antenatal screening; Z13.0 Encounter for screening for diseases of the blood and blood-forming organs and certain disorders involving the immune mechanism
CPT/HCPCS: 81240; 86695 ×2; 86900; 86901; 36415 ×2; 86850; 84443; 85025 ×2; 81001; 86778; 86747 ×3; 83036; 81241; 88233; 88262; 86696; 59200; G0378 ×2; G0379; J7121 ×2